=== PATIENT | male | born 1965 ===

== ENCOUNTER → 2022-01-07 | Outpatient (CLI) | payer OTHER ==
[~2022-01-07] MED LIST: LOSA-73 PO; MELA1TAB44 PO; elavil
--- NOTE | 2022-01-07 08:59 | PDOC1 ---
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 reports no specific injury or accident but multiple injuries over many years patient reports has been getting worse now over the past 1 to 2 years however in the low back and the bilateral lower extremities worse on the right side with pain radiating across the low back into the right hip posterior gluteus posterior thigh into the calf occasionally patient reports is worse with walking standing changing positions lifting or bending stooping better with sitting or laying down wakes him to sleep occasionally but not most nights patient reports is worse with standing still as well as with walking and exercising patient reports is not effective bowel bladder control does affect his go to walk fairly significantly is not use any assistive devices to ambulate he has had physical therapy in the past as well as current exercise had some chiropractic treatment in the distant past which were helpful but only very temporarily without decrease in pain long-term patient has tried multiple [id number] medications analgesics such as anti-inflammatory as well as Tylenol and naproxen however he was having some increased kidney enzymes and was taken off of the switch help the kidneys but the pain has been much less tolerable although he still taking Tylenol it helps but only by about 20% patient reports disability rating from 0-10 10 being the worst is a 5 and home responsibilities 3 with social activity 7 with recreational activities. Patient of MRI scan lumbar spine at outside facility showing spinal stenosis in the lower lumbar regions as documented. Patient reports pain is constant sharp in the back radiating shooting in the lower extremities worse on the right than left again posteriorly in the gluteus and thigh and calf aching and cold can be cramping at times as well. Patient significant fatigability of the right leg with any activity. Patient reports no loss of motor function no bowel or bladder incontinence. PAST MEDICAL HISTORY: PMH: Arthritis, hypertension, cigarette smoking PREVIOUS SURGERIES: Past Surgical Hx: Bilateral shoulder acromioplasty, anterior cervical fusion, right elbow surgery, bilateral knee scopes, left partial knee replacement, right ankle surgery CURRENT MEDICATIONS: Current Meds: Active Scripts Medications Dose Route/Sig Max Daily Dose Days Date Category Melatonin 1 Mg Tablet Unknown Dose PO HS 2/15/22 Reported Losartan Potassium 50 Mg Tablet Unknown Dose PO DAILY 01/07/22 Reported [elavil] Unknown Dose DAILY 01/07/22 Reported ALLERGIES; Allergies: Coded Allergies: No Known Drug Allergies (Unverified , 01/07/22) FAMILY HISTORY: Family Hx: No major medical problems or conditions that he is aware of. SOCIAL HISTORY: Social Hx: Patient is under alcohol has smoking history cigarette use quit 35 years ago does not use any illegal illicit recreational drugs is single is currently in custody REVIEW OF SYSTEMS: ROS: Positive for those items mentioned in history of present illness, all systems are reviewed, otherwise negative ,and are complete full and well-documented on patient's chart. PHYSICAL EXAM: VS: Blood pressure is 147/95 pulse 81 respirations 16 temperature is 98.0 F height is 5 feet 10 inches weight is 239 pounds. PE: PHYSICAL EXAMINATION: GENERAL: The patient is awake, alert, oriented, appropriate, very pleasant in demeanor, patient in custody HEENT: Shows normocephalic, atraumatic. Extraocular movements are intact and symmetrical. Patient wearing eyeglasses. Oral cavity: Mucous membranes moist and pink. Dentition is intact. NECK: Shows anterior throat supple without palpable lymphadenopathy noted. Swallow reflex symmetrical. CHEST: Shows normal on inspection. Breath sounds are clear bilaterally. HEART: Shows S1, S2 clear. No murmurs auscultated. ABDOMEN: Soft, nontender, nondistended. No palpable organomegaly is noted. No rebound or guarding demonstrated. BACK: Shows spine grossly in the midline. Normal-appearing cervical lordotic curvature. There is slightly increased thoracic kyphosis, some flattening of the lumbar lordotic curvature. Lumbar paraspinous muscles show symmetrical on inspection, on palpation shows some moderate tenderness diffusely throughout the upper, middle and lower distribution of the paraspinous muscles bilaterally and also into the lower thoracic paraspinous musculature, firm and tender, but without specific trigger points, without radiation of pain. The patient has good rotational motion of the lumbar spine, both laterally as well as extension and flexion without significant difficulty. No tenderness over the spinous processes, sacrum or sacroiliac regions. EXTREMITIES: Lower extremities show deep tendon reflexes 2+ in the patellar and tendo calcaneus tendons. Motor exam is 4 on a scale of 5 with right dorsiflexion, extension, quadriceps and hamstring flexion and 5/5 on the left. Peripheral pulses are 1+ posterior tibial. No peripheral edema is noted bilaterally. Lower extremities are warm and dry to touch, equal in color and appearance. Straight leg raise noted to be positive on the right about 45 degrees, left side is negative. Gaenslen's and Miguelito's maneuvers are negative bilaterally. The patient is able to stand, stand on her toes that significant difficulty or loss of balance walks with a normal-appearing gait does appear to favor the right lower extremity slightly but not use any assistive devices to ambulate such as canes or walkers. SKIN: Shows warm and dry, good turgor. No edema. No sores, rashes or bruising throughout. IMPRESSION: Impression: 56-year-old male with long history of low back and lateral lower extremity pain right greater than left in a radicular fashion following L5-S1 dermatomal distribution. MRI scan lumbar spine as noted Arthritis Hypertension Plan: Options were discussed with the patient including conservative managements physical therapies and techniques. Patient like to pursue interventional techniques as he has done physical therapy without significant improvement. We discussed a lumbar epidural steroid injections description as well as anatomical models to describe the procedure. We will wait for preauthorization with patient's insurance provider, once approved we will have him return for translaminar approach L5-S1 level lumbar epidural steroid injection with fluoroscopic guidance at that time. In the meantime, patient will continue with stretching strength exercises and oral analgesics as currently. DEREK GRAF MD Jan 07, 2022 08:59
== END | disposition home or self-care (01) ==
LOC: EEVIPCON 08:00 → PNCL 08:07
PROVIDERS: ATTEND Anesthesiology
DX: M54.50 Low back pain, unspecified (principal); M79.605 Pain in left leg; I10 Essential (primary) hypertension; M19.90 Unspecified osteoarthritis, unspecified site; Z79.899 Other long term (current) drug therapy; Z87.891 Personal history of nicotine dependence; Z98.890 Other specified postprocedural states
CPT/HCPCS: G0463